=== PATIENT | female | born 1995 | race Caucasian/White ===

== ENCOUNTER 2016-12-15 12:48 | Emergency (ER) | payer OTHER ==
[~2016-12-15] VITALS: Ht 172.7 cm; Wt 68.2 kg
[~2016-12-15 12:48] MED LIST: ACET1TAB42 PO; GABA600T2 PO; IBUP200C PO; LEVE500T3 PO; LEVO750T39 PO; MEDR150D9 IM; NORT10CA PO; ONDA4TAB6 PO; PHEN-684 PO; SERT50TA9 PO
[2016-12-15 12:52] VITALS: BP 68/36; PULSE 77; RESP 16; O2SAT 99
--- NOTE | 2016-12-15 13:00 | ED.REPORT ---
HPI-General Illness Date of Service Dec 15, 2016 ED Provider: Karthikeyan Lieberman DO Patient is a 21 year old female with a history of seizures, migraines, low ferritin and periodic limb movement disorder who presents to the ED due to a syncopal episode. Associated symptoms include fatigue, weakness, headache and neck pain/stiffness. She reports that she was sick about a week ago and was unable to keep anything down but has not vomited since then. She denies fever, dysuria, cough, hematochezia, hematemesis, swollen lymphnodes, night sweats or hitting her head. Patient states that she was walking into work when she began to feel like she was going to faint so she sat down. Per a witness, the patient started nodding off and her eyes rolled back. Patient thought she might have had a seizure. She states that her headache is not like her normal migraines, which normally don't include neck pain and that the pain is worse when she stands. Nursing Notes Stated Complaint: BLACKING OUT Chief Complaint: Neuro Symptoms/ Deficits Nursing Notes Reviewed: Yes Allergies: Coded Allergies: No Known Allergies (Verified , 12/15/16) Scheduled Gabapentin (Gabapentin) 600 Mg Tablet 1,200 MG PO BIDBL Gabapentin (Gabapentin) 600 Mg Tablet 1,800 MG PO HS Levetiracetam (Levetiracetam) 500 Mg Tablet 500 MG PO BID Levofloxacin (Levofloxacin) 750 Mg Tablet 750 MG PO DAILY Medroxyprogesterone Acetate (Depo-Provera) 150 Mg/1 Ml Syringe Unknown Dose IM DIRECTED Nortriptyline (Nortriptyline) 10 Mg Capsule 30 MG PO HS Sertraline HCl (Sertraline) 50 Mg Tablet 50 MG PO DAILY Scheduled PRN Acetaminophen/Codeine 300-30mg (Acetaminophen/Codeine 300-30mg) 1 Each Tablet 1 TABLET PO Q4H PRN PRN Pain Ibuprofen (Ibuprofen) 200 Mg Capsule 400-600 MG PO QID PRN PRN For Pain Ondansetron (Zofran) 4 Mg Tablet 4 MG PO Q4H PRN PRN For Nausea Phenazopyridine (Pyridium) 200 Mg Tablet 200 MG PO TID PRN PRN For Pain General Time Seen by MD: 12:59 Chief Complaint Other (syncope) Hx Obtained From: Patient Arrived By: Walk-in Sudden in Onset?: Yes Onset Occurred: Just prior to arrival Associated with: Reports: Headache, Neck pain, Weakness, Denies: Cough, Fever Recent Healthcare: No recent doctor visit, No recent hospitalization Similar Sx Previous: Yes Past Medical History Past Medical History migraines seizures periodic limb movement disorder detention/current use of opiate analgesic Past Surgical History none reported Smoking History Never Smoker Social History Alcohol Use: Denies alcohol use Drug Use: Denies drug use Other Social History: Good social support Ambulatory Status Independent Review of Systems Full Review of Systems Constitutional: Reports: Fatigue, Weakness - generalized, Denies: Chills, Fever Respiratory: Denies: Non-productive cough, Shortness of breath GI: Denies: Hematemesis, Hematochezia, Vomiting Female: Denies: Dysuria Musculoskeletal: Reports: Neck pain Hematologic: Denies Adenopathy Neurologic: Reports: Headache, Syncope Complete sys rev & neg: except as marked. Physical Exam Vital Signs Vital Signs Date Time Temp Pulse Resp B/P Pulse Ox O2 Delivery O2 Flow Rate FiO2 12/15/16 16:24 79 17 106/73 100 12/15/16 15:03 36.4 70 16 102/63 100 Room Air 12/15/16 12:52 36.4 77 16 68/36 99 Initial VS: Reviewed General/Constitutional: Awake, Alert Appearance / Presentation: Positive: Pale Head / Eyes: Atraumatic, Normocephalic, PERRL, EOMI ENT: Atraumatic, Airway patent, Mucous membranes moist Neck: Atraumatic, Supple, No meningismus, Full range of motion no nucchal rigidity Respiratory / Chest: Atraumatic, Breath sounds NL, Breath sounds = bilat, No respiratory distress Cardiovascular: Heart rate NL, Regular rhythm, Heart sounds NL hypotensive Abdomen: Atraumatic, Soft, Non-tender Skin: Atraumatic, No rash, Warm, Dry Neurologic: Oriented X3, Speech NL, No motor deficits, No sensory deficits, CN II - XII intact Psychiatric: Affect NL, Mood NL Interpretation & Diagnostics Lab Results Interpretation Result Diagram: 12/15/16 1305 12/15/16 1305 Test 12/15/16 13:05 12/15/16 14:55 12/15/16 17:29 12/15/16 17:50 White Blood Count 6.8th/mm3 (3.8-10.1) Red Blood Count 3.98mil/mm3 (3.90-5.20) Hemoglobin 11.7g/dL (12.0-15.6) Hematocrit 35.7% (35.0-46.0) Mean Corpuscular Volume 89.7fL (81-100) Mean Corpuscular Hemoglobin 29.4pg (27.0-35.0) Mean Corpuscular Hemoglobin Concent 32.8% (32.0-37.0) Red Cell Distribution Width 12.8% (12.3-15.4) Platelet Count 343bil/L (150-400) Neutrophils (%) (Auto) 49.0% (40-74) Lymphocytes (%) (Auto) 41.5% (14-46) Monocytes (%) (Auto) 7.5% (4-12) Eosinophils (%) (Auto) 1.5% (0-5) Basophils (%) (Auto) 0.4% (0-3) D-Dimer < 0.50mg/L FEU (<0.50) Sodium Level 137mEq/L (134-144) Potassium Level 4.4mEq/L (3.5-5.2) Chloride Level 103mEq/L (97-108) Carbon Dioxide Level 18mmol/L (18-29) Blood Urea Nitrogen 10mg/dL (6-20) Creatinine 0.60mg/dL (0.57-1.00) Estimat Glomerular Filtration Rate 179mL/min (>59) Glucose Level 145mg/dL (60-99) Lactic Acid Level 1.7mmol/L (0.4-2.0) Calcium Level 9.4mg/dL (8.5-10.1) Magnesium Level 2.1mg/dL (1.6-2.6) Total Bilirubin 0.2mg/dL (0.0-1.2) Aspartate Amino Transf (AST/SGOT) 21U/L (0-50) Alanine Aminotransferase (ALT/SGPT) 12U/L (0-32) Alkaline Phosphatase 55U/L (25-150) Total Protein 6.5g/dL (6.4-8.4) Albumin 4.3g/dL (3.4-5.0) Urine Color Yellow (YELLOW) Urine Appearance Hazy (CLEAR,HAZY) Urine pH 6.5 (5.0-8.0) Urine Specific [place] 1.005 (1.003-1.035) Urine Protein Negativemg/dL (NEG,TRACE) Urine Glucose (UA) 100mg/dL (NEGATIVE) Urine Ketones Negativemg/dL (NEGATIVE) Urine Occult Blood Negative (NEGATIVE) Urine Nitrite Negative (NEGATIVE) Urine Bilirubin Negative (NEGATIVE) Urine Urobilinogen Normalmg/dL (NORMAL) Urine Leukocyte Esterase Negative (NEGATIVE) Urine RBC 0-2/hpf (0-2) Urine WBC 0-5/hpf (0-5) Urine Epithelial Cells Occasional/hpf (NONE-MOD) Urine Crystals None seen (NONE SEEN) Urine Bacteria Many/hpf (NONE-FEW) Urine Hyaline Casts None/lpf (NONE) Urine Granular Casts None seen (NONE SEEN) Urine Waxy Casts None seen (NONE SEEN) Urine Red Blood Cell Casts None seen (NONE SEEN) Urine White Blood Cell Casts None seen (NONE SEEN) Urine Mucus None seen (None Seen) Urine Trichomonas None seen (NONE SEEN) Urine Yeast None (NONE SEEN) Urinalysis Comment None Urine Culture Reflexed Indicated Hold Urine Received (Received) CSF Appearance Clear (CLEAR) CSF Color Colorless (COLORLESS) CSF WBC 4/mm3 (0-5) CSF RBC 0/mm3 CSF Mononuclear WBCs % CSF Polynuclear WBCs % CSF Other Cells CSF Glucose 68mg/dL (45-90) CSF Total Protein 25mg/dL (15-45) Troponin T < 0.010ug/L (0.0-0.011) ECG Interpretation ECG Interpretation: prolonged QT interval Time: 13:29 Interpreted by: ED physician Normal ECG Interpretation: Normal rate (68), Normal sinus rhythm ECG Interpretation: normal QTC Time: 17:27 Interpreted by: ED physician Normal ECG Interpretation: Normal rate (80), Normal sinus rhythm X-Ray Chest Interpretation Chest Xray Interpretation: IMPRESSION: Negative chest. No acute cardiopulmonary process is evident. Dictated by: Emir Engle M.D. on 12/15/2016 at 12:46 Approved by: Emir Engle M.D. on 12/15/2016 at 12:50 View: Portable, 1 view Interpretation / Wet Read by: Interpret - Radiologist CT Head Interpretation IMPRESSION: No acute intracranial disease process. Dictated by: Marleni Fan MD, PhD on 12/15/2016 at 16:16 Approved by: Marleni Fan MD, PhD on 12/15/2016 at 16:17 Interpretation / Wet Read by: Interpret - Radiologist Procedures Lumbar Puncture Time: 17:04 Procedure Performed by: ED physician Consent / Setup / Site Prep: Informed consent provided, Consent from patient , Time-out performed, Hand hygiene observed, Sterile drapes applied, Patient sitting up Skin Preparation Agent: Other (chloraprep) Local Anesthesia: Lidocaine 1% LP Needle Gauge: 25G3 Inserted Needle at: L3 L4 Post-Procedure / Complications: Antibiotic oint applied, Dressing applied, No complications, Tolerated procedure well, Patient stable Re-Eval/Medical Decision Med Decision/Clinical Course She presents hypotensive of unclear etiology, extensive diagnostic workup is performed. Of note after she is more comfortable she continues to complain of headache which was sudden in onset and atypical of her prior migraines. Had CT and lumbar puncture were performed for this reason and are unremarkable. She is not anemic, normal CBC and CMP. Serial troponins and EKGs are unremarkable. It should be noted that the computer read the initial EKG as mildly prolonged QT and cardiology is consulted regarding this, it is felt that this is not truly prolonged QT and that this has been EKG is also reassuring with a normal QT interval. It is not thought that these symptoms are due to prolonged QT induced ventricular arrhythmia. Patient received 2 L normal saline. He received Tylenol, IV Compazine, IV Benadryl, 2 doses of 25 g of fentanyl, IV Toradol after head CT and LP. She has been up and walking, her head ache has significantly improved her blood pressure has normalized and she is feeling better. Ultimately she will be DC'd. Turn and follow-up precautions given. Time of Eval: 13:56 Re-Evaluation/Progress Note: Patient reports that she is still experiencing a severe headache with neck involvement. Her blood pressure is 90 systolic. Time of Eval: 14:52 Patient Status: Mild relief Re-Evaluation/Progress Note: Patient is feeling less drowsy. Time of Eval: 16:30 Re-Evaluation/Progress Note: Discussed CT results. Offered treatment options. Patient decided on LP. Time of Eval: 18:05 Re-Evaluation/Progress Note: Discussed CSF results and plan for discharge pending second trop. Patient understands and agrees to the plan. All questions were addressed. Consultation : Referral / Consult Name: Thomas Garcia MD Consulted With: Cardiology Call Returned at: 17:32 Note: Discussed patient's EKG with Dr. Garcia, cell efficiency supervisor, specifically the findings of QT prolongation as read by the machine. Dr. Garcia reviewed EKG and did not think that it represented pathologic or significant prolonged QT. Also, discussed the second EKG which showed improved QT intervval. He does not think that this meets diagnostic criteria to warrant admission. Recommends speaking to psych about reducing her medications. Counseled Regarding: Diagnosis, Lab results, Need for follow-up, When/why to return to ED Discharge & Departure Primary Impression: Syncope Syncope type: unspecified Qualified Code: R55 - Syncope and collapse Additional Impression: Headache Headache type: unspecified Headache chronicity pattern: acute headache Intractability: not intractable Qualified Code: R51 - Headache Disposition: Home Discharge Condition All VS Reviewed: Yes Condition: Stable Additional Instructions: Overall your workup is reassuring. There is no evidence of heart attack, pulmonary embolism, intracranial hemorrhage, your electrolytes and blood counts were normal. You should discuss with your regular doctor about discontinuing some of your medications as you are initial EKG showed some minor QT prolongation. This does not seem to be life-threatening at this time. Continue home medications. Return to the ER as needed for either recurrent syncope, severe headache that you cannot control, high fever, lethargy, or any other concerning signs or symptoms Referrals: Sherine Ahn MD (PCP) Crit Care Except Billable Proc Time Spent: 75-104 minutes Services Performed: Patient management by me, Time spent at bedside, Reviewing test results Critical Care Notes: See WANDA Fitzgeraldibjeremy Attestation Portions of this note were transcribed by Jenni Khan. I, Dr. Mounika Garcia personally performed the history, physical exam and medical decision-making; I reviewed and confirmed the accuracy of the information in the transcribed note. Signed by: Nadia Renae, 12/15/16 and 1330 copies to: Sherine Ahn MD, Timothy S DO Dec 15, 2016 13:00 Ida Khan Dec 15, 2016 13:24
[2016-12-15] MEDS ORDERED: 0.9% Sodium Chloride 1,000 ML IV ONE ×2 (13:11→13:15)
[2016-12-15 13:20] LABS: BASOPHILS % (AUTO) 0.4 % (0-3); EOSINOPHILS % (AUTO) 1.5 % (0-5); MONOCYTES % (AUTO) 7.5 % (4-12); Mean Corpuscular Hemoglobin 29.4 pg (27.0-35.0); Mean Corpuscular Volume 89.7 fL (81-100); Platelet Count 343 bil/L (150-400)
[2016-12-15 13:45] LABS: TROPONIN T < 0.010 ug/L (0.0-0.011)
--- NOTE | 2016-12-15 13:52 | DRSVH ---
PROCEDURE: X-RAY CHEST ONE VIEW, PORTABLE ([id number]) INDICATIONS: syncope TECHNIQUE: One view of the chest was acquired. COMPARISON: [facility], , CHEST 2VW, 08/23/2009, 1:06. FINDINGS: Surgical changes and devices: None. Lungs and pleura: No pleural effusions or pneumothorax. Lungs are clear. Mediastinum: Mediastinal contours appear normal. Heart size is normal. Bones and chest wall: No suspicious bony lesions. Overlying soft tissues appear unremarkable. IMPRESSION: Negative chest. No acute cardiopulmonary process is evident. Dictated by: Emir Engle M.D. on 12/15/2016 at 12:46 Approved by: Emir Engle M.D. on 12/15/2016 at 12:50
[2016-12-15 13:53] LABS: Magnesium 2.1 mg/dL (1.6-2.6)
[2016-12-15] MEDS ORDERED: 0.9% Sodium Chloride 1,000 ML IV SCH (14:00)
[2016-12-15 15:03] VITALS: BP 102/63; PULSE 70; RESP 16; O2SAT 100
[2016-12-15] MEDS ORDERED: ProchlorPERazine 5 mg/mL 2 mL Inj IVPUSH ONE (15:25)
--- NOTE | 2016-12-15 16:19 | DRSVH ---
PROCEDURE: CT BRAIN WITHOUT CONTRAST ([id number]) INDICATIONS: headache TECHNIQUE: Noncontrast 4.5 mm thick angled axial sections acquired from the foramen magnum to the vertex, with c oronal reformats. COMPARISON: None. FINDINGS: Image quality: Excellent. CSF spaces: Basal cisterns are patent. No extra-axial fluid collections. Ventricles are normal in size and shape. Brain: No midline shift. No intracranial masses or hemorrhage. [place]-white matter interface is norm al. Skull and face: Calvarium and visualized facial bones are intact, without suspicious lesions. Sinuses: Visualized sinuses and mastoids are clear. IMPRESSION: No acute intracranial disease process. Dictated by: Marleni Fan MD, PhD on 12/15/2016 at 16:16 Approved by: Marleni Fan MD, PhD on 12/15/2016 at 16:17
[2016-12-15 16:24] VITALS: BP 106/73; PULSE 79; RESP 17; O2SAT 100
[2016-12-15 16:40] LABS: APPEARANCE,URINE HAZY (CLEAR,HAZY); COLOR,URINE YELLOW (YELLOW); OCCULT BLOOD,URINE NEGATIVE (NEGATIVE); PH,URINE 6.5 (5.0-8.0); UROBILINOGEN,URINE NORMAL (NORMAL)
[2016-12-15] MEDS ORDERED: fentaNYL-PF 50 mCg/mL 2 mL Inj IVPUSH ONE ×2 (17:20→18:25)
[2016-12-15 17:39] LABS: APPEARANCE,CSF CLEAR (CLEAR); COLOR,CSF COLORLESS (COLORLESS); WHITE BLOOD CELL,CSF 4 /mm3 (0-5)
[2016-12-15] MEDS ORDERED: Ketorolac 15 mg/mL Inj IVPUSH ONE (18:25)
[2016-12-15 19:01] VITALS: BP 106/73; PULSE 79; RESP 17; O2SAT 100
== END 2016-12-15 19:03 | disposition home or self-care (01) ==
LOC: SED 12:48
DX: R55 Syncope and collapse (principal); R51 Headache; R53.83 Other fatigue; R53.1 Weakness; M54.2 Cervicalgia; G43.909 Migraine, unspecified, not intractable, without status migrainosus
CPT/HCPCS: 36415; 62270; 70450; 71010; 80053; 81000; 81002; 81025; 82945; 83605; 83735; 84155; 84484; 85025; 85378; 86850; 87070; 87086; 87088; 87186; 87205; 89051; 93005; 96361; 96374; 96375; 96376; 99291; 99292; J0780; J1200; J1885; J3010; J7030